=== PATIENT | female | born 1950 | race Caucasian/White ===

== ENCOUNTER 2017-04-09 11:45 | Emergency (ER) | payer OTHER, MEDICAID ==
[2017-04-09 11:51] VITALS: RESP 18
--- NOTE | 2017-04-09 13:06 | EDPHY ---
H & P Stated Complaint: Tripped,fell yesterday;skin tear,pain R wrist,abbrasion L knee Time Seen by Provider: 04/09/17 12:01 HPI/ROS: CHIEF COMPLAINT: Mechanical fall, right hand pain, left knee pain HISTORY OF PRESENT ILLNESS: The patient presents to the ED with complaints of pain, swelling and ecchymosis to the right hand and left knee following a mechanical fall yesterday. She tripped after running. She did not strike her head or lose consciousness. The patient denies any associated numbness or weakness. The patient has no complaints of headache, neck pain, chest pain or abdominal pain. REVIEW OF SYSTEMS: A comprehensive 10 point review of systems is otherwise negative aside from elements mentioned in the history of present illness. Source: Patient Exam Limitations: No limitations - Personal History Current Tetanus Diphtheria and Acellular Pertussis (TDAP): Yes Tetanus Vaccine Date: < 10 years - Medical/Surgical History Hx Asthma: No Hx Chronic Respiratory Disease: No Hx Diabetes: No Hx Cardiac Disease: No Hx Renal Disease: No Hx Cirrhosis: No Hx Alcoholism: No Hx HIV/AIDS: No Hx Splenectomy or Spleen Trauma: No Other PMH: Chronic bronchitis, Barrets esophagus, fibromyalgia, anxiety, depression left chest mediport, narc withdrawal - Social History Smoking Status: Never smoked - Physical Exam Exam: General Appearance: Alert, no distress Head: Atraumatic Eyes: Pupils equal, round, reactive ENT, Mouth: No hemotympanum, no oral trauma Neck: Nontender, trachea midline Respiratory: No chest wall tender, subcutaneous air, lungs clear bilaterally Cardiovascular: Regular rate and rhythm Abdomen: Abdomen is soft and nontender, pelvis stable Skin: Ecchymosis noted to the palm of the right hand and left knee, superficial abrasions present over right hand and knee Back: No midline T/L/S pain Extremities: Tenderness to palpation over the right thenar eminence, tenderness to palpation over the left knee Neurological: A&Ox3, normal motor function, normal sensory exam Constitutional: Initial Vital Signs Temperature (C) 36.8 C 04/09/17 11:46 Heart Rate 90 04/09/17 11:46 Respiratory Rate 18 04/09/17 11:46 Blood Pressure 118/78 04/09/17 11:46 O2 Sat (%) 94 04/09/17 11:46 O2 Delivery Mode Room Air Allergies/Adverse Reactions: cyclobenzaprine HCl [From Flexeril] Allergy (Mild, Verified 04/09/17 11:51) Rash sulfamethoxazole [From Septra] Allergy (Mild, Verified 04/09/17 11:51) Vomiting trimethoprim [From Septra] Allergy (Mild, Verified 04/09/17 11:51) Vomiting Home Medications: Medication Instructions Recorded Diclofenac Sodium 1% [Voltaren Gel 1 saba TP QID PRN 06/14/15 (*)] Sucralfate 1 gm PO QID 06/14/15 clonazePAM [klonoPIN (*)] 1 mg PO HS 06/14/15 Furosemide [Lasix 40 MG (*)] 40 mg PO BID@0900,1500 #0 tab 10/05/15 traMADol [Ultram 50 mg (*)] 50 mg PO Q4 04/09/17 Medical Decision Making - Diagnostics Imaging Results: Right hand x-ray: Images reviewed by myself, negative for acute fracture. Left knee x-ray: Images reviewed by myself, negative for acute fracture ED Course/Re-evaluation: The patient presents to the ED for evaluation of right hand pain and left knee pain following mechanical fall yesterday. She was taken for x-rays of these joints which demonstrated no obvious fracture by my interpretation. The patient will be placed in a Velcro wrist splint and advised to follow up with Orthopedic surgery for any persistent pain in the hand/wrist as this may be the sign of an occult fracture. The patient has been advised to ice as directed. She can take ibuprofen as needed for pain. Differential Diagnosis: Differential diagnosis considered includes fracture, sprain, dislocation Departure - Departure Disposition: Home, Routine, Self-Care Clinical Impression: Contusion of knee, left, Contusion of hand, right, Abrasions of multiple sites Condition: Good Instructions: Musculoskeletal Pain (ED) Additional Instructions: 1. Wear hand splint as needed for comfort. 2. Ice as directed 3. Ibuprofen as needed for pain 4. Please follow up with the orthopedic surgeon you have been referred to for any pain which persists past 3-5 days as this may be the sign of a fracture not noted on the x-ray today. Referrals: Charlene Umaña MD [Medical Doctor] - As per Instructions
[2017-04-09 13:40] VITALS: BP 119/79; PULSE 89; TEMP 98.6; O2SAT 93
== END 2017-04-09 13:42 | disposition home or self-care (01) ==
DX: S60.221A Contusion of right hand, initial encounter (principal); S80.02XA Contusion of left knee, initial encounter; S60.511A Abrasion of right hand, initial encounter; S80.212A Abrasion, left knee, initial encounter; W01.0XXA Fall on same level from slipping, tripping and stumbling without subsequent striking against object, initial encounter; Y99.8 Other external cause status; Y93.02 Activity, running
CPT/HCPCS: 73130; 73564; 99284; L3807

== ENCOUNTER 2017-05-23 11:57 | Inpatient (IN) | payer OTHER, MEDICAID ==
--- NOTE | 2017-05-23 12:23 | EDPHY ---
H & P Stated Complaint: abdominal pain Time Seen by Provider: 05/23/17 12:10 HPI/ROS: CHIEF COMPLAINT: Abdominal pain since this morning HISTORY OF PRESENT ILLNESS: 66-year-old female arrives via ambulance, history of diverticulitis, complaining of not feeling well for the past 3 days, development of nausea vomiting diarrhea yesterday and development of periumbilical abdominal pain this morning which feels similar to her prior episode of diverticulitis. No melena or hematochezia. No fever or chills. No radiation of pain. No back or flank pain. No urinary abnormality. No abdominal or other trauma. PRIMARY CARE PROVIDER: ASIM Huddleston REVIEW OF SYSTEMS: A ten point review of systems was performed and is negative with the exception of the items mentioned in the HPI PAST MEDICAL & SURGICAL HISTORY: Diverticulitis. Chronic pain. SOCIAL HISTORY:Nonsmoker PHYSICAL EXAM (Prior to examination, patient consented to physical exam, hands were washed and my usual and customary physical exam procedures followed) 1) GENERAL: Well-developed, well-nourished, alert and oriented. Appears uncomfortable. 2) HEAD: Normocephalic, atraumatic 3) HEENT: Pupils equal, round, reactive to light bilaterally. Sclera anicteric. [Nasopharynx, oropharynx, clear, no lesions. Moist mucous membranes 4) NECK: Full range of motion, no meningeal signs. 5) LUNGS: Clear auscultation bilaterally, no wheezes, no rhonchi, no retractions. 6) HEART: Regular rate and rhythm, no murmur, no heave, no gallop. 7) ABDOMEN: Guarding abdomen, tender to palpation periumbilical region. Negative peritoneal sign, 8) MUSCULOSKELETAL: Moving all extremities, no focal areas of tenderness, no obvious trauma. No peripheral edema or discoloration. 9) BACK: No CVA tenderness, no midline vertebral tenderness, no fluctuance, no step-off, no obvious trauma, no visual or palpable abnormality. 10) SKIN: No rash, no petechiae. 11) Psychiatric: Patient is oriented X 3, there is no agitation. DIFFERENTIAL DIAGNOSIS: My differential diagnosis includes, but is not limited to, acute appendicitis, acute cholecystitis, bowel obstruction, acute pancreatitis, diverticulitis, gastritis and urinary tract infection. The patient understands that this diagnosis is provisional and can never be 100% accurate. This is a partial list of diagnoses considered. These considerations are based on history, physical exam, past history and reassessment. - Personal History Current Tetanus/Diphtheria Vaccine: Yes Current Tetanus Diphtheria and Acellular Pertussis (TDAP): Yes Tetanus Vaccine Date: < 10 years - Medical/Surgical History Hx Asthma: No Hx Chronic Respiratory Disease: No Hx Diabetes: No Hx Cardiac Disease: No Hx Renal Disease: No Hx Cirrhosis: No Hx Alcoholism: No Hx HIV/AIDS: No Hx Splenectomy or Spleen Trauma: No Other PMH: Chronic bronchitis, Barrets esophagus, fibromyalgia, anxiety, depression left chest mediport, narc withdrawal - Social History Smoking Status: Never smoked Constitutional: Initial Vital Signs Temperature (C) 37.1 C 05/23/17 11:57 Heart Rate 98 05/23/17 11:57 Respiratory Rate 15 05/23/17 11:57 Blood Pressure 158/99 H 05/23/17 11:57 O2 Sat (%) 95 05/23/17 11:57 O2 Delivery Mode Nasal Cannula O2 (L/minute) 2 Allergies/Adverse Reactions: cyclobenzaprine HCl [From Flexeril] Allergy (Mild, Verified 04/09/17 11:51) Rash sulfamethoxazole [From Septra] Allergy (Mild, Verified 04/09/17 11:51) Vomiting trimethoprim [From Septra] Allergy (Mild, Verified 04/09/17 11:51) Vomiting Home Medications: Medication Instructions Recorded Diclofenac Sodium 1% [Voltaren Gel 1 saba TP QID PRN 06/14/15 (*)] Sucralfate 1 gm PO QID 06/14/15 clonazePAM [klonoPIN (*)] 1 mg PO HS 06/14/15 Furosemide [Lasix 40 MG (*)] 40 mg PO BID@0900,1500 #0 tab 10/05/15 traMADol [Ultram 50 mg (*)] 50 mg PO Q4 04/09/17 Cymbalta 05/23/17 Famotidine 05/23/17 Lipitor 05/23/17 Lorazepam 05/23/17 Phenergan 05/23/17 Potassium 05/23/17 Prilosec 05/23/17 Quetiapine Fumarate 05/23/17 SUMAtriptan 05/23/17 Triamterene-Hctz 75-50 mg Tab 05/23/17 Tylenol 05/23/17 Zofran 05/23/17 traZODone 05/23/17 Medical Decision Making - Diagnostics Imaging Results: Imaging Impressions Abdomen CT 05/23/17 12:21 Impression: Suspect early sigmoid diverticulitis, without abscess or perforation. Results called to Antione Brody PA-C, at the time of the study. ED Course/Re-evaluation: 2:40 p.m.: The patient has been re-evaluated with serial examinations most recently at this time. Patient's pain management has been challenging in the emergency department. She was given 200 mcg of fentanyl pre-hospital, given further doses of fentanyl and Dilaudid emergency department and this has had little effect on her pain. At this time she is crying, stating that she has does not feel she can be discharged home. Will consult with Dr. Yossi John. Case discussed with Dr. Brennan Rice in the emergency department secondary supervising physician 2:45 p.m.: Consultation Dr. Yossi John who agrees to admit patient. Patient has been given dose of IV Invanz she has no evidence of perforation or abdominal abscess on exam. - Data Points Laboratory Results: Laboratory Results 05/23/17 12:00 05/23/17 12:00 05/23/17 05/23/17 05/23/17 12:30 12:00 12:00 WBC 8.20 10^3/uL 10^3/uL (3.80-9.50) RBC 4.61 10^6/uL 10^6/uL (4.18-5.33) Hgb 14.2 g/dL g/dL (12.6-16.3) Hct 41.5 % % (38.0-47.0) MCV 90.0 fL fL (81.5-99.8) MCH 30.8 pg pg (27.9-34.1) MCHC 34.2 g/dL g/dL (32.4-36.7) RDW 13.4 % % (11.5-15.2) Plt Count 252 10^3/uL 10^3/uL (150-400) MPV 11.5 fL fL (8.7-11.7) Neut % (Auto) 77.3 % H % (39.3-74.2) Lymph % (Auto) 16.6 % % (15.0-45.0) Pepin % (Auto) 3.8 % L % (4.5-13.0) Eos % (Auto) 1.1 % % (0.6-7.6) Baso % (Auto) 0.6 % % (0.3-1.7) Nucleat RBC Rel Count 0.0 % % (0.0-0.2) Absolute Neuts (auto) 6.34 10^3/uL 10^3/uL (1.70-6.50) Absolute Lymphs (auto) 1.36 10^3/uL 10^3/uL (1.00-3.00) Absolute Monos (auto) 0.31 10^3/uL 10^3/uL (0.30-0.80) Absolute Eos (auto) 0.09 10^3/uL 10^3/uL (0.03-0.40) Absolute Basos (auto) 0.05 10^3/uL 10^3/uL (0.02-0.10) Absolute Nucleated RBC 0.00 10^3/uL 10^3/uL (0-0.01) Immature Gran % 0.6 % % (0.0-1.1) Immature Gran # 0.05 10^3/uL 10^3/uL (0.00-0.10) Sodium 148 mEq/L H mEq/L (135-145) Potassium 4.4 mEq/L mEq/L (3.5-5.2) Chloride 113 mEq/L H mEq/L (97-110) Carbon Dioxide 20 mEq/l L mEq/l (22-31) Anion Gap 15 mEq/L mEq/L (8-16) BUN 10 mg/dL mg/dL (7-23) Creatinine 1.0 mg/dL mg/dL (0.6-1.0) Estimated GFR 56 Glucose 140 mg/dL H mg/dL (70-100) Calcium 9.8 mg/dL mg/dL (8.5-10.4) Total Bilirubin 0.2 mg/dL mg/dL (0.1-1.4) Conjugated Bilirubin 0.2 mg/dL mg/dL (0.0-0.5) Unconjugated Bilirubin 0.0 mg/dL mg/dL (0.0-1.1) AST 21 IU/L IU/L (14-46) ALT 25 IU/L IU/L (9-52) Alkaline Phosphatase 75 IU/L IU/L (38-126) Total Protein 6.7 g/dL g/dL (6.3-8.2) Albumin 4.3 g/dL g/dL (3.5-5.0) Lipase 72 IU/L IU/L (23-300) Urine Color PALE YELLOW Urine Appearance CLEAR Urine pH 7.0 (5.0-7.5) Ur Specific [place] 1.005 (1.002-1.030) Urine Protein NEGATIVE (NEGATIVE) Urine Ketones NEGATIVE (NEGATIVE) Urine Blood NEGATIVE (NEGATIVE) Urine Nitrate NEGATIVE (NEGATIVE) Urine Bilirubin NEGATIVE (NEGATIVE) Urine Urobilinogen NEGATIVE EU EU (0.2-1.0) Ur Leukocyte Esterase NEGATIVE (NEGATIVE) Urine RBC 1-3 /hpf /hpf (0-3) Urine WBC 1-3 /hpf /hpf (0-3) Ur Epithelial Cells NONE SEEN /lpf /lpf (NONE-1+) Hyaline Casts 1-5 /lpf /lpf (0-1) Urine Mucus TRACE /lpf /lpf (NONE-1+) Urine Glucose NEGATIVE (NEGATIVE) Medications Given: Discontinued Medications Hydromorphone HCl (Dilaudid) 1 mg IVP EDNOW ONE Stop: 05/23/17 13:41 Last Admin: 05/23/17 13:43 Dose: 1 mg Ondansetron HCl (Zofran) 4 mg IVP EDNOW ONE Stop: 05/23/17 13:10 Last Admin: 05/23/17 13:11 Dose: 4 mg Departure - Departure Disposition: [facility] Clinical Impression: Diverticulitis Condition: Fair
[2017-05-23 12:26] LABS: PLATELET COUNT 252 10^3/uL (150-400)
[2017-05-23] MEDS ORDERED: IOPAMIDOL (ISOVUE-300) 100 ML BTL ONE (13:07)
[2017-05-23] MEDS ORDERED: ONDANSETRON 4 MG/2 ML VIAL IVP ONE (13:09)
[2017-05-23] MEDS ORDERED: HYDROmorphONE/DILAUDID 1 MG/ML INJ IVP ONE (13:40)
[2017-05-23] MEDS ORDERED: ERTAPENEM 1 GM VIAL IVP ONE (14:47)
[2017-05-23] MEDS ORDERED: KETOROLAC 30 MG/1 ML SDV IVP ONE (15:49)
[2017-05-23] MEDS: ONDANSETRON 4 MG/2 ML VIAL IVP PRN ×2 (17:18→21:26)
[2017-05-23] MEDS: D5W 1/2 NS W/ 20 KCl/L 1,000 ML IV SCH (17:24)
[2017-05-23] MEDS: KETOROLAC 15 MG/1 ML SDV IVP SCH (21:25)
[2017-05-23] MEDS: PANTOPRAZOLE SODIUM 40 MG TAB PO SCH (21:26)
[2017-05-23] MEDS ORDERED: NON-FORMULARY NEW DRUG (Ondansetron Hcl [Zofran] 8 MG) PO PRN (22:38)
[2017-05-23] MEDS ORDERED: PROMETHAZINE HCL 25 MG TAB PO PRN (22:38)
[2017-05-23] MEDS ORDERED: traMADol 50 MG TAB PO PRN (22:38)
[2017-05-23] MEDS ORDERED: DICLOFENAC SODIUM 1% 100 GM GEL TP PRN (22:38)
[2017-05-23] MEDS ORDERED: DULoxetine 30 MG CAP PO SCH (22:45)
[2017-05-23] MEDS ORDERED: DULoxetine 60 MG CAP PO SCH (22:45)
[2017-05-23] MEDS: FAMOTIDINE 20 MG TAB PO SCH (23:10)
[2017-05-23] MEDS: clonazePAM 0.5 MG TAB PO SCH (23:10)
[2017-05-23] MEDS: LORazepam 1 MG TAB PO PRN (23:11)
[2017-05-23] MEDS: traZODone 50 MG TAB PO SCH (23:11)
[2017-05-23] MEDS: QUEtiapine FUMARATE 100 MG TAB PO SCH (23:11)
[2017-05-23] MEDS ORDERED: ONDANSETRON DISINTEGRATING 4 MG TAB PO PRN (23:30)
[2017-05-24] MEDS: D5W 1/2 NS W/ 20 KCl/L 1,000 ML IV SCH (04:20)
[2017-05-24] MEDS: KETOROLAC 15 MG/1 ML SDV IVP SCH ×4 (04:21→21:49)
--- NOTE | 2017-05-24 04:30 | GHP ---
[f rep st] HISTORY AND PHYSICAL DATE OF ADMISSION: 05/23/2017 REASON FOR ADMISSION: Diverticulitis. HISTORY: The patient is a 66-year-old female, presents with 3 days of progressive abdominal symptoms , ultimately manifesting as moderate to severe abdominal pain. PAST MEDICAL HISTORY: Significant for esophagitis, Cortez's esophagus, depression, fibromyalgia, ch ronic pain, type 2 diabetes in 2009, erosive esophagitis, peptic ulcer disease, pulmonary embolism in 2006, recurrent nausea, vomiting, abdominal pain. PAST SURGICAL HISTORY: Significant for cholecystectomy, JUNE, eye surgery for being cross-eyed at age 10, breast biopsy left breast, CIELO left shoulder. FAMILY HISTORY: Father at age 33 of end-stage renal disease. Mother at 89 from [facility]. She has 3 siblings. She has 1 son. SOCIAL HISTORY: She does not smoke. She does not drink excessively. CURRENT MEDICATIONS: Tramadol 50 mg 1 or 2 every 6 hours as needed, trazodone 50 mg at bedtime, Cymb ivone 60 mg once daily, Cymbalta 30 mg once daily, atorvastatin 10 mg daily, clonazepam 0.5 mg at bedt barron, omeprazole 40 mg twice daily, quetiapine 100 mg at bedtime. REVIEW OF SYSTEMS: She was in good shape until the onset of her abdominal discomfort a few days ago. PHYSICAL EXAMINATION: VITAL SIGNS: Blood pressure 122/77, pulse 78 and regular, oxygen saturation 9 4% on 2 L pupils. GENERAL: She is alert, oriented, and appropriate, complaining of moderately signi ficant abdominal pain. HEENT: Pupils are equal, reactive to light. Throat is normal. LUNGS: Galina r to auscultation. HEART: Regular rate and rhythm without apparent murmur. GI: Bowel sounds are p resent. Her abdomen is tender to touch in the left lower abdomen. EXTREMITIES: She has no peripher al edema. She moves all extremities well. LABS AND DIAGNOSTIC STUDIES: Review of CT scan shows an area of diverticulitis of the colon. IMPRESSION: Diverticulitis. PLAN: Will admit. Place on IV antibiotics. Will observe closely. /[id number]/MODL
[2017-05-24] MEDS: ERTAPENEM 1 GM VIAL IVP SCH (09:34)
[2017-05-24] MEDS: ONDANSETRON 4 MG/2 ML VIAL IVP PRN (09:34)
[2017-05-24] MEDS: ATORVASTATIN CALCIUM 10 MG TAB PO SCH (09:35)
[2017-05-24] MEDS: FUROSEMIDE 40 MG TAB PO SCH (09:35)
[2017-05-24] MEDS: POTASSIUM CL 20 MEQ TAB PO SCH ×2 (09:35→21:47)
[2017-05-24] MEDS: DULoxetine 30 MG CAP PO SCH (09:35)
[2017-05-24] MEDS: LORazepam 1 MG TAB PO PRN ×3 (09:35→21:47)
[2017-05-24] MEDS: PANTOPRAZOLE SODIUM 40 MG TAB PO SCH ×2 (09:36→21:47)
[2017-05-24] MEDS: FAMOTIDINE 20 MG TAB PO SCH ×2 (09:36→21:47)
[2017-05-24] MEDS ORDERED: morphINE IR 30 MG TAB PO PRN (11:11)
--- NOTE | 2017-05-24 11:18 | SOAPPROG ---
SOAP Progress Note Assessment/Plan: Assessment: Plan: 05/24/17 11:15 abdominal pain with sigmoid diverticulitis. Continue IV Invanz and flagyl. She has a complicated history of prior high dose chronic pain therapy. Pain control will likely be more challenging. Will add po morphine along with IV short acting. Anticipate the potential need to escalate the dose. N/V--tank terminal gauger historic challenge. Increase phenergan dosing. Historically ondansetron by itself has not worked adequately. insomnia--stable QUIN--CPAP at home depression/anxiety--continue current meds Subjective: Anh has had escalating GI symptoms with a sudden increase in central abdominal pain after n/v yesterday. No f/c. + URI sx with known illness contact at [facility]. She has been able to eat a smoothie today. Central abdominal pain persists. + BM today Objective: Vital Signs Temp Pulse Resp BP Pulse Ox 36.8 C 74 16 120/68 98 05/24/17 07:25 05/24/17 07:25 05/24/17 07:25 05/24/17 07:25 05/24/17 07:25 05/23/17 05/24/17 05/25/17 05:59 05:59 05:59 Intake Total 1100 Balance 1100 Gen: uncomfortable, pleasant Lungs: CTAB Heart: RRR Abd + bs soft, nd + TTP greatest in the mckinley-umbilical region LE's stable mild edema CT prox sigmoid diverticulitis ICD10 Worksheet Patient Problems: Problems Problem Status Onset Diverticulitis Acute Abdominal pain Acute Bronchitis Acute Chronic abdominal pain Acute Diarrhea Acute Elevated serum creatinine Acute History of nausea and vomiting Acute Hypokalemia Acute Nausea & vomiting Acute Pain Acute Pneumonia Acute Vomiting Acute
[2017-05-24] MEDS ORDERED: ENOXAPARIN 80 MG/0.8 ML SYR SC SCH (11:30)
[2017-05-24] MEDS: PROMETHAZINE HCL 25 MG TAB PO PRN (12:02)
--- NOTE | 2017-05-24 12:34 | ASMTCMCOM ---
CM Note CM Note Notes: Chart reviewed. Patient admitted with abdominal pain. Normally lives at [facility] with no services. No current needs identified, CM available should needs arise. Date Signed: 05/24/2017 12:33 PM Electronically Signed By:Jo Stewart RN
[2017-05-24] MEDS: ENOXAPARIN 40 MG/0.4 ML SYR SC SCH (13:40)
[2017-05-24] MEDS: ACETAMINOPHEN 500 MG TAB PO PRN (16:43)
[2017-05-24] MEDS: PROMETHAZINE HCL 25 MG/ML INJ IVP PRN (20:00)
[2017-05-24] MEDS ORDERED: HYDROmorphONE/DILAUDID 1 MG/ML INJ IVP ONE (20:15)
[2017-05-24] MEDS ORDERED: HYDROmorphONE/DILAUDID 1 MG/ML INJ IVP PRN (20:28)
[2017-05-24] MEDS ORDERED: clonazePAM 0.5 MG TAB PO SCH (21:00)
[2017-05-24] MEDS: QUEtiapine FUMARATE 100 MG TAB PO SCH (21:47)
[2017-05-24] MEDS: clonazePAM 0.5 MG TAB PO SCH (21:47)
[2017-05-24] MEDS: traZODone 50 MG TAB PO SCH (21:47)
[2017-05-25] MEDS: D5W 1/2 NS W/ 20 KCl/L 1,000 ML IV SCH ×2 (04:45→17:00)
[2017-05-25] MEDS: KETOROLAC 15 MG/1 ML SDV IVP SCH ×4 (04:45→21:42)
[2017-05-25 05:04] LABS: PLATELET COUNT 183 10^3/uL (150-400)
[2017-05-25] MEDS: PROMETHAZINE HCL 25 MG/ML INJ IVP PRN (08:19)
[2017-05-25] MEDS: ERTAPENEM 1 GM VIAL IVP SCH (08:24)
[2017-05-25] MEDS: ENOXAPARIN 40 MG/0.4 ML SYR SC SCH (08:24)
[2017-05-25] MEDS: FAMOTIDINE 20 MG TAB PO SCH ×2 (08:25→21:42)
[2017-05-25] MEDS: DULoxetine 30 MG CAP PO SCH (08:25)
[2017-05-25] MEDS: FUROSEMIDE 40 MG TAB PO SCH (08:25)
[2017-05-25] MEDS: PANTOPRAZOLE SODIUM 40 MG TAB PO SCH ×2 (08:25→21:42)
[2017-05-25] MEDS: ATORVASTATIN CALCIUM 10 MG TAB PO SCH (08:25)
[2017-05-25] MEDS: POTASSIUM CL 20 MEQ TAB PO SCH ×2 (08:25→21:42)
[2017-05-25] MEDS ORDERED: ALBUTEROL 3 ML DEYVIAL IH PRN (09:02)
--- NOTE | 2017-05-25 09:06 | SOAPPROG ---
SOAP Progress Note Assessment/Plan: Assessment: Plan: 05/24/17 11:15 abdominal pain with sigmoid diverticulitis. Continue IV Invanz and flagyl. She has a complicated history of prior high dose chronic pain therapy. Pain control will likely be more challenging. Will add po morphine along with IV short acting. Anticipate the potential need to escalate the dose. N/V--alf historic challenge. Increase phenergan dosing. Historically ondansetron by itself has not worked adequately. insomnia--stable QUIN--CPAP at home depression/anxiety--continue current meds 05/25/17 09:05 acute URI sx--eval for influenza today. Start symptomatic care, add tamiflu if + diverticulitis--a bit better today historic fe def--now nl Subjective: c/o nasal congestion, cough and wheeze. GI sx seem to be improved. Pain spike last evening was improved by dilaudid successfully. + BM. po still reduced Objective: Vital Signs Temp Pulse Resp BP Pulse Ox 36.9 C 76 16 106/72 95 05/25/17 07:49 05/25/17 07:49 05/25/17 07:49 05/25/17 07:49 05/25/17 07:49 Laboratory Results 05/25/17 04:45 05/25/17 04:45 05/24/17 05/25/17 05/26/17 05:59 05:59 05:59 Intake Total 1100 4162 Balance 1100 4162 Gen: brighter HEENT: nasal congestion Lungs: mild exp wheeze, dry cough Heart: RRR Abd +bs soft, less TTP labs: low hdl, tsh fine, iron adequate ICD10 Worksheet Patient Problems: Problems Problem Status Onset Diverticulitis Acute Abdominal pain Acute Bronchitis Acute Chronic abdominal pain Acute Diarrhea Acute Elevated serum creatinine Acute History of nausea and vomiting Acute Hypokalemia Acute Nausea & vomiting Acute Pain Acute Pneumonia Acute Vomiting Acute
[2017-05-25] MEDS: LORazepam 1 MG TAB PO PRN ×2 (09:51→16:00)
[2017-05-25] MEDS: guaiFENesin 600 MG TAB.ER PO SCH ×2 (09:51→21:42)
[2017-05-25] MEDS: OXYMETAZOLINE 30 ML NASAL SPRAY EACHNARE SCH (09:52)
[2017-05-25] MEDS: HYDROmorphONE/DILAUDID 1 MG/ML INJ IVP PRN ×5 (09:52→22:43)
[2017-05-25] MEDS: ONDANSETRON 4 MG/2 ML VIAL IVP PRN (10:50)
--- NOTE | 2017-05-25 12:21 | ASMTCMCOM ---
CM Note CM Note Notes: Chart reviewed. Spoke to patient's RN who reports patient will stay today as pain is uncontrolled. Plan to return to [facility] when medicallly stable. CM to follow. Date Signed: 05/25/2017 12:20 PM Electronically Signed By:Jo Stewart RN
[2017-05-25] MEDS: ALPRAZolam 1 MG TAB PO PRN (15:39)
[2017-05-25] MEDS: ACETAMINOPHEN 500 MG TAB PO PRN (17:58)
[2017-05-25] MEDS: PROMETHAZINE HCL 25 MG TAB PO PRN (19:34)
[2017-05-25] MEDS: QUEtiapine FUMARATE 100 MG TAB PO SCH (21:42)
[2017-05-25] MEDS: traZODone 50 MG TAB PO SCH (21:42)
[2017-05-25] MEDS: clonazePAM 0.5 MG TAB PO SCH (21:42)
[2017-05-26] MEDS: D5W 1/2 NS W/ 20 KCl/L 1,000 ML IV SCH ×2 (04:04→16:20)
[2017-05-26] MEDS: PROMETHAZINE HCL 25 MG TAB PO PRN ×2 (04:05→21:36)
[2017-05-26] MEDS: HYDROmorphONE/DILAUDID 1 MG/ML INJ IVP PRN ×6 (04:05→21:30)
[2017-05-26] MEDS: KETOROLAC 15 MG/1 ML SDV IVP SCH ×4 (04:05→21:30)
[2017-05-26] MEDS: OXYMETAZOLINE 30 ML NASAL SPRAY EACHNARE SCH ×3 (04:39→20:29)
[2017-05-26] MEDS: LORazepam 1 MG TAB PO PRN (07:56)
[2017-05-26] MEDS: DULoxetine 30 MG CAP PO SCH (08:42)
[2017-05-26] MEDS: PANTOPRAZOLE SODIUM 40 MG TAB PO SCH ×2 (08:43→20:24)
[2017-05-26] MEDS: FAMOTIDINE 20 MG TAB PO SCH ×2 (08:43→20:24)
[2017-05-26] MEDS: guaiFENesin 600 MG TAB.ER PO SCH ×2 (08:43→20:23)
[2017-05-26] MEDS: ATORVASTATIN CALCIUM 10 MG TAB PO SCH (08:43)
[2017-05-26] MEDS: POTASSIUM CL 20 MEQ TAB PO SCH ×2 (08:43→20:24)
[2017-05-26] MEDS: FUROSEMIDE 40 MG TAB PO SCH (08:43)
[2017-05-26] MEDS: ENOXAPARIN 40 MG/0.4 ML SYR SC SCH (08:45)
[2017-05-26] MEDS: ONDANSETRON 4 MG/2 ML VIAL IVP PRN (09:02)
[2017-05-26] MEDS: ACETAMINOPHEN 500 MG TAB PO PRN ×2 (09:04→17:17)
--- NOTE | 2017-05-26 10:27 | SOAPPROG ---
SOAP Progress Note Assessment/Plan: Assessment: 66 yo female w/ diverticulitis, URI, ongoing pain and nausea -diverticulitis - cont on IV abx, slow progress, on invanz and flagyl, phenergan /zofran for nausea, is having some loose stools. -URI - influenza neg, still w/ coughing w/ deep inspiration, somewhat wheezy on exam - has nebs but prn, will change to q4 while awake as she reports she is not getting these. -QUIN - cpap -depression/anxiety - cont w/ current meds Plan: 05/26/17 10:24 Subjective: c/o ongoing abdominal discomfort, tight chest Objective: Vital Signs Temp Pulse Resp BP Pulse Ox 36.7 C 83 20 127/73 H 94 05/26/17 08:00 05/26/17 08:00 05/26/17 08:00 05/26/17 08:00 05/26/17 08:00 Laboratory Results 05/25/17 04:45 05/25/17 04:45 05/25/17 05/26/17 05/27/17 05:59 05:59 05:59 Intake Total 4162 3964 Balance 4162 3964 Gen: laying on side in dark room, listening to story on phone, depressed affect Heent: eomi Neck soft/supple Chest: some scattered expiratory wheezes CV: rrr ABD: soft ttp in mid epigastric area to L side Ext: c/d/i ICD10 Worksheet Patient Problems: Problems Problem Status Onset Bronchitis Acute Pneumonia Acute History of nausea and vomiting Acute Diarrhea Acute Abdominal pain Acute Vomiting Acute Hypokalemia Acute Nausea & vomiting Acute Chronic abdominal pain Acute Pain Acute Elevated serum creatinine Acute Diverticulitis Acute
[2017-05-26] MEDS: ALBUTEROL 3 ML DEYVIAL IH SCH ×3 (12:46→20:47)
[2017-05-26] MEDS: PROMETHAZINE HCL 25 MG/ML INJ IVP PRN (14:59)
[2017-05-26] MEDS: QUEtiapine FUMARATE 100 MG TAB PO SCH (20:23)
[2017-05-26] MEDS: traZODone 50 MG TAB PO SCH (20:23)
[2017-05-26] MEDS: clonazePAM 0.5 MG TAB PO SCH (20:24)
[2017-05-27] MEDS: ALBUTEROL 3 ML DEYVIAL IH SCH ×6 (01:49→22:15)
[2017-05-27] MEDS: HYDROmorphONE/DILAUDID 1 MG/ML INJ IVP PRN ×7 (02:08→20:56)
[2017-05-27] MEDS: PROMETHAZINE HCL 25 MG TAB PO PRN ×2 (03:30→10:37)
[2017-05-27] MEDS: D5W 1/2 NS W/ 20 KCl/L 1,000 ML IV SCH ×2 (03:31→14:27)
[2017-05-27] MEDS: LORazepam 1 MG TAB PO PRN (04:48)
[2017-05-27] MEDS: KETOROLAC 15 MG/1 ML SDV IVP SCH ×4 (04:48→20:56)
[2017-05-27] MEDS: ENOXAPARIN 40 MG/0.4 ML SYR SC SCH (08:20)
[2017-05-27] MEDS: ATORVASTATIN CALCIUM 10 MG TAB PO SCH (08:21)
[2017-05-27] MEDS: guaiFENesin 600 MG TAB.ER PO SCH ×2 (08:22→20:57)
[2017-05-27] MEDS: DULoxetine 30 MG CAP PO SCH (08:22)
[2017-05-27] MEDS: FUROSEMIDE 40 MG TAB PO SCH (08:22)
[2017-05-27] MEDS: FAMOTIDINE 20 MG TAB PO SCH ×2 (08:22→20:56)
--- NOTE | 2017-05-27 09:00 | SOAPPROG ---
SOAP Progress Note Assessment/Plan: Assessment: Plan: 05/24/17 11:15 abdominal pain with sigmoid diverticulitis. Continue IV Invanz and flagyl. She has a complicated history of prior high dose chronic pain therapy. Pain control will likely be more challenging. Will add po morphine along with IV short acting. Anticipate the potential need to escalate the dose. N/V--[facility] historic challenge. Increase phenergan dosing. Historically ondansetron by itself has not worked adequately. insomnia--stable QUIN--CPAP at home depression/anxiety--continue current meds 05/25/17 09:05 acute URI sx--eval for influenza today. Start symptomatic care, add tamiflu if + diverticulitis--a bit better today historic fe def--now nl 05/27/17 08:58 pain--add long acting morphine to better bridge pain gaps (h/o rat exterminator chronic pain therapy) diverticulitis--slow improvement in pain sx, check labs in am URI--moderate lung coarseness with this, add prednisone dep/anxiety--aggravated by illness QUIN--HS oxygen while here d/c home to [facility] when improved adequately Subjective: C/o cough, abdominal pain, significant pain between doses of dilaudid. Eating is minimal. Bowels moving Objective: Vital Signs Temp Pulse Resp BP Pulse Ox 37.8 C 87 14 114/67 95 05/27/17 08:00 05/27/17 08:00 05/27/17 08:00 05/27/17 08:00 05/27/17 08:00 Laboratory Results 05/25/17 04:45 05/25/17 04:45 05/26/17 05/27/17 05/28/17 05:59 05:59 05:59 Intake Total 8834 Balance 8834 Gen: NAD, pleasant HEENT: slightly dry mm's Lungs: coarse BS, dry cough Heart: RRR Abd + bs soft, mild TTP central abdomen LE's trace edema low grade temp noted ICD10 Worksheet Patient Problems: Problems Problem Status Onset Diverticulitis Acute Abdominal pain Acute Bronchitis Acute Chronic abdominal pain Acute Diarrhea Acute Elevated serum creatinine Acute History of nausea and vomiting Acute Hypokalemia Acute Nausea & vomiting Acute Pain Acute Pneumonia Acute Vomiting Acute
[2017-05-27] MEDS: PANTOPRAZOLE SODIUM 40 MG TAB PO SCH ×2 (10:37→20:57)
[2017-05-27] MEDS: POTASSIUM CL 20 MEQ TAB PO SCH ×2 (10:37→20:57)
[2017-05-27] MEDS: predniSONE 20 MG TAB PO SCH (10:37)
[2017-05-27] MEDS: morphINE SR 30 MG TAB PO SCH ×2 (10:38→20:56)
[2017-05-27] MEDS: OXYMETAZOLINE 30 ML NASAL SPRAY EACHNARE SCH ×2 (10:38→20:57)
--- NOTE | 2017-05-27 15:22 | ASMTCMCOM ---
CM Note CM Note Notes: Plan remains the same, pt is independent with ADLs, will dc home to [place] when medically stable. CM available for any changes. DC Plan: [facility] [place] Date Signed: 05/27/2017 03:21 PM Electronically Signed By:Heather Hartmann RN
[2017-05-27] MEDS: traZODone 50 MG TAB PO SCH (20:56)
[2017-05-27] MEDS: clonazePAM 0.5 MG TAB PO SCH (20:57)
[2017-05-27] MEDS: QUEtiapine FUMARATE 100 MG TAB PO SCH (20:57)
[2017-05-28] MEDS: KETOROLAC 15 MG/1 ML SDV IVP SCH ×3 (03:10→17:03)
[2017-05-28] MEDS: D5W 1/2 NS W/ 20 KCl/L 1,000 ML IV SCH (03:10)
[2017-05-28] MEDS: HYDROmorphONE/DILAUDID 1 MG/ML INJ IVP PRN ×7 (03:10→23:43)
[2017-05-28] MEDS: OXYMETAZOLINE 30 ML NASAL SPRAY EACHNARE SCH ×4 (03:15→23:44)
[2017-05-28 03:47] LABS: PLATELET COUNT 150 10^3/uL (150-400)
[2017-05-28] MEDS: ALBUTEROL 3 ML DEYVIAL IH SCH ×6 (04:11→21:02)
[2017-05-28] MEDS: DULoxetine 30 MG CAP PO SCH (08:08)
[2017-05-28] MEDS: ATORVASTATIN CALCIUM 10 MG TAB PO SCH (08:08)
[2017-05-28] MEDS: morphINE SR 30 MG TAB PO SCH ×2 (08:08→20:15)
[2017-05-28] MEDS: PANTOPRAZOLE SODIUM 40 MG TAB PO SCH ×2 (08:08→20:15)
[2017-05-28] MEDS: ENOXAPARIN 40 MG/0.4 ML SYR SC SCH (08:08)
[2017-05-28] MEDS: guaiFENesin 600 MG TAB.ER PO SCH ×2 (08:08→20:15)
[2017-05-28] MEDS: FUROSEMIDE 40 MG TAB PO SCH (08:08)
[2017-05-28] MEDS: FAMOTIDINE 20 MG TAB PO SCH ×2 (08:08→20:15)
[2017-05-28] MEDS: POTASSIUM CL 20 MEQ TAB PO SCH ×2 (08:09→20:16)
[2017-05-28] MEDS: predniSONE 20 MG TAB PO SCH (08:09)
--- NOTE | 2017-05-28 09:05 | SOAPPROG ---
SOAP Progress Note Assessment/Plan: Assessment: Plan: 05/24/17 11:15 abdominal pain with sigmoid diverticulitis. Continue IV Invanz and flagyl. She has a complicated history of prior high dose chronic pain therapy. Pain control will likely be more challenging. Will add po morphine along with IV short acting. Anticipate the potential need to escalate the dose. 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 Increase phenergan dosing. Historically ondansetron by itself has not worked adequately. insomnia--stable QUIN--CPAP at home depression/anxiety--continue current meds 05/25/17 09:05 acute URI sx--eval for influenza today. 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 Pain less of an issue. Cough is very prominent and moderately painful. SOB stable. GI sx improving, eating better. Objective: Vital Signs Temp Pulse Resp BP Pulse Ox 36.8 C 68 20 112/70 96 05/28/17 07:31 05/28/17 07:31 05/28/17 07:31 05/28/17 07:31 05/28/17 07:56 Laboratory Results 05/28/17 03:30 05/28/17 03:30 05/27/17 05/28/17 05/29/17 05:59 05:59 05:59 Intake Total 8834 4025 Balance 8834 4028 Gen: Brighter Lungs: moderate persistent exp wheeze right middle lung, no crackles, mild productivity Heart: RRR Abd + bs soft LE's stable edema ICD10 Worksheet Patient Problems: Problems Problem Status Onset Diverticulitis Acute Abdominal pain Acute Bronchitis Acute Chronic abdominal pain Acute Diarrhea Acute Elevated serum creatinine Acute History of nausea and vomiting Acute Hypokalemia Acute Nausea & vomiting Acute Pain Acute Pneumonia Acute Vomiting Acute
[2017-05-28] MEDS: PROMETHAZINE HCL 25 MG TAB PO PRN (19:16)
[2017-05-28] MEDS: QUEtiapine FUMARATE 100 MG TAB PO SCH (20:15)
[2017-05-28] MEDS: clonazePAM 0.5 MG TAB PO SCH (20:15)
[2017-05-28] MEDS: traZODone 50 MG TAB PO SCH (20:15)
[2017-05-28] MEDS: LORazepam 1 MG TAB PO PRN (23:43)
[2017-05-29] MEDS: ALBUTEROL 3 ML DEYVIAL IH SCH ×6 (01:39→21:37)
[2017-05-29] MEDS: HYDROmorphONE/DILAUDID 1 MG/ML INJ IVP PRN ×5 (05:07→19:12)
[2017-05-29] MEDS: cefTRIAXone 1 GM in STERILE WATER INJ 10 ML IV SCH (09:26)
[2017-05-29] MEDS: ATORVASTATIN CALCIUM 10 MG TAB PO SCH (09:30)
[2017-05-29] MEDS: FAMOTIDINE 20 MG TAB PO SCH ×2 (09:30→20:07)
[2017-05-29] MEDS: predniSONE 20 MG TAB PO SCH (09:30)
[2017-05-29] MEDS: guaiFENesin 600 MG TAB.ER PO SCH ×2 (09:30→20:07)
[2017-05-29] MEDS: DULoxetine 30 MG CAP PO SCH (09:30)
[2017-05-29] MEDS: FUROSEMIDE 40 MG TAB PO SCH (09:31)
[2017-05-29] MEDS: PANTOPRAZOLE SODIUM 40 MG TAB PO SCH ×2 (09:31→20:07)
[2017-05-29] MEDS: morphINE SR 30 MG TAB PO SCH ×2 (09:31→20:07)
[2017-05-29] MEDS: POTASSIUM CL 20 MEQ TAB PO SCH ×2 (09:31→20:07)
[2017-05-29] MEDS: ENOXAPARIN 40 MG/0.4 ML SYR SC SCH (09:34)
[2017-05-29] MEDS: OXYMETAZOLINE 30 ML NASAL SPRAY EACHNARE SCH ×3 (09:50→20:07)
--- NOTE | 2017-05-29 11:25 | ASMTCMCOM ---
CM Note CM Note Notes: DC plan unchanged. No needs identified. CM available should needs change. Date Signed: 05/29/2017 11:24 AM Electronically Signed By:Jo Stewart RN
[2017-05-29] MEDS: LORazepam 1 MG TAB PO PRN (11:41)
[2017-05-29] MEDS: PROMETHAZINE HCL 25 MG TAB PO PRN (11:58)
[2017-05-29] MEDS: clonazePAM 0.5 MG TAB PO SCH (20:07)
[2017-05-29] MEDS: traZODone 50 MG TAB PO SCH (20:07)
[2017-05-29] MEDS: QUEtiapine FUMARATE 100 MG TAB PO SCH (20:10)
[2017-05-30] MEDS: HYDROmorphONE/DILAUDID 1 MG/ML INJ IVP PRN ×5 (00:15→18:32)
[2017-05-30] MEDS: ALBUTEROL 3 ML DEYVIAL IH SCH ×6 (04:38→21:44)
[2017-05-30] MEDS: PROMETHAZINE HCL 25 MG/ML INJ IVP PRN (05:37)
[2017-05-30] MEDS: OXYMETAZOLINE 30 ML NASAL SPRAY EACHNARE SCH ×2 (08:17→22:25)
[2017-05-30] MEDS: ENOXAPARIN 40 MG/0.4 ML SYR SC SCH (08:18)
[2017-05-30] MEDS: cefTRIAXone 1 GM in STERILE WATER INJ 10 ML IV SCH (08:18)
[2017-05-30] MEDS: ATORVASTATIN CALCIUM 10 MG TAB PO SCH (08:22)
[2017-05-30] MEDS: PANTOPRAZOLE SODIUM 40 MG TAB PO SCH ×2 (08:22→20:30)
[2017-05-30] MEDS: FAMOTIDINE 20 MG TAB PO SCH ×2 (08:22→20:30)
[2017-05-30] MEDS: DULoxetine 30 MG CAP PO SCH (08:22)
[2017-05-30] MEDS: morphINE SR 30 MG TAB PO SCH ×2 (08:22→20:30)
[2017-05-30] MEDS: POTASSIUM CL 20 MEQ TAB PO SCH ×2 (08:23→20:30)
[2017-05-30] MEDS: guaiFENesin 600 MG TAB.ER PO SCH ×2 (08:23→20:30)
[2017-05-30] MEDS: FUROSEMIDE 40 MG TAB PO SCH (08:23)
[2017-05-30] MEDS: predniSONE 20 MG TAB PO SCH (08:32)
[2017-05-30] MEDS: ALPRAZolam 1 MG TAB PO PRN (11:05)
--- NOTE | 2017-05-30 12:41 | SOAPPROG ---
SOAP Progress Note Assessment/Plan: Assessment: 66 yo female w/ diverticulitis, URI, ongoing pain and nausea -diverticulitis - cont on IV abx, slow progress, on invanz and flagyl, phenergan /zofran for nausea, is having some loose stools. -URI - influenza neg, still w/ coughing w/ deep inspiration, somewhat wheezy on exam - has nebs but prn, will change to q4 while awake as she reports she is not getting these. -QUIN - cpap -depression/anxiety - cont w/ current meds Plan: 05/26/17 10:24 05/30/17 12:38 LATE ENTRY NOTE FOR 05/29/17 66 yo female w/ diverticulitis, URI -diverticulitis - much better, nl bm's, eating full diet -URI - still w/ sob/wheezing - cont on pred 20, nebs, hopefully improves over next 24 hrs -QUIN - cpap -depression/anxiety - brighter affect now as feeling better, cont current meds -dispo - likely d/c Sat or Sun to [facility] - has good care there in place. Subjective: Doing better, just c/o ongoing tight chest, milder abd'l pain Objective: Vital Signs Temp Pulse Resp BP Pulse Ox 37.1 C 82 16 132/72 H 92 05/30/17 10:55 05/30/17 10:55 05/30/17 10:55 05/30/17 10:55 05/30/17 10:55 Laboratory Results 05/28/17 03:30 05/28/17 03:30 05/29/17 05/30/17 05/31/17 05:59 05:59 05:59 Intake Total 1400 600 Balance 1400 600 Gen: alert, sitting up but coughing Heent; eomi Chest: wheezes scattered throughout CV: rrr ABD mildly ttp diffusely - Pending Discharge Pending Discharge Within 48 Hours: Yes Pending Discharge Date: 06/01/17 Pending Discharge Time: 11:00 ICD10 Worksheet Patient Problems: Problems Problem Status Onset Bronchitis Acute Pneumonia Acute History of nausea and vomiting Acute Diarrhea Acute Abdominal pain Acute Vomiting Acute Hypokalemia Acute Nausea & vomiting Acute Chronic abdominal pain Acute Pain Acute Elevated serum creatinine Acute Diverticulitis Acute
--- NOTE | 2017-05-30 13:18 | SOAPPROG ---
SOAP Progress Note Assessment/Plan: Assessment: Plan: 05/30/17 13:21 Diverticulitis: improved. Will change to PO antibx and see how she does prior to discharging her. Will switch her to Augmentin as she would prefer fewer pills. URI: still with significant episodes of cough despite prednisone, nebs. No wheezing on exam today. QUIN: on CPAP Depression, anxiety: cont current meds 05/30/17 13:25 Subjective: Slept well last night, but woke up with headache, head congestion, cough and didn't feel well. Nebs help. Mild fluid overload noted on CXR, and is on lasix. Anxious about going home on the weekend as she isn't sure she can get the help she thinks she might need from staff at [facility]. Abdominal discomfort much better. Has had 3 BMs this morning. Remains on IV antibx for diverticulitis --ceftriaxone and metronidazole. Objective: Vital Signs Temp Pulse Resp BP Pulse Ox 37.1 C 82 16 132/72 H 92 05/30/17 10:55 05/30/17 10:55 05/30/17 10:55 05/30/17 10:55 05/30/17 10:55 Laboratory Results 05/28/17 03:30 05/28/17 03:30 05/29/17 05/30/17 05/31/17 05:59 05:59 05:59 Intake Total 1400 600 Balance 1400 600 General: sitting up in bed, pleasant Neck: no masses, adenopathy Lungs: clear. Dry cough at times Cardiovascular: RRR without masses, adenopathy Abdomen: +bowel sounds, soft. Mild tenderness RLQ Extremities: no edema ICD10 Worksheet Patient Problems: Problems Problem Status Onset Diverticulitis Acute Abdominal pain Acute Bronchitis Acute Chronic abdominal pain Acute Diarrhea Acute Elevated serum creatinine Acute History of nausea and vomiting Acute Hypokalemia Acute Nausea & vomiting Acute Pain Acute Pneumonia Acute Vomiting Acute
[2017-05-30] MEDS: AMOXICILLIN/CLAVULANATE POT 875/125 MG TAB PO SCH ×2 (15:50→20:31)
[2017-05-30] MEDS: clonazePAM 0.5 MG TAB PO SCH (20:30)
[2017-05-30] MEDS: QUEtiapine FUMARATE 100 MG TAB PO SCH (20:30)
[2017-05-30] MEDS: traZODone 50 MG TAB PO SCH (20:30)
[2017-05-31] MEDS: HYDROmorphONE/DILAUDID 1 MG/ML INJ IVP PRN ×5 (00:18→19:59)
[2017-05-31] MEDS: LORazepam 1 MG TAB PO PRN ×2 (00:23→22:09)
[2017-05-31] MEDS: PROMETHAZINE HCL 25 MG TAB PO PRN ×2 (00:32→14:47)
[2017-05-31] MEDS: ALBUTEROL 3 ML DEYVIAL IH SCH ×4 (02:00→10:37)
[2017-05-31] MEDS: ENOXAPARIN 40 MG/0.4 ML SYR SC SCH (09:46)
[2017-05-31] MEDS: guaiFENesin 600 MG TAB.ER PO SCH ×2 (09:46→20:04)
[2017-05-31] MEDS: POTASSIUM CL 20 MEQ TAB PO SCH ×2 (09:46→20:03)
[2017-05-31] MEDS: AMOXICILLIN/CLAVULANATE POT 875/125 MG TAB PO SCH ×3 (09:47→22:09)
[2017-05-31] MEDS: morphINE SR 30 MG TAB PO SCH ×2 (09:47→20:04)
[2017-05-31] MEDS: ATORVASTATIN CALCIUM 10 MG TAB PO SCH (09:47)
[2017-05-31] MEDS: PANTOPRAZOLE SODIUM 40 MG TAB PO SCH ×2 (09:47→20:04)
[2017-05-31] MEDS: FAMOTIDINE 20 MG TAB PO SCH ×2 (09:47→20:04)
[2017-05-31] MEDS: predniSONE 20 MG TAB PO SCH (09:48)
[2017-05-31] MEDS: FUROSEMIDE 40 MG TAB PO SCH (09:48)
[2017-05-31] MEDS: DULoxetine 30 MG CAP PO SCH (09:48)
[2017-05-31] MEDS: OXYMETAZOLINE 30 ML NASAL SPRAY EACHNARE SCH ×2 (09:49→22:10)
[2017-05-31] MEDS ORDERED: LEVALBUTEROL 1.25 MG/3 ML DEYVIAL ONE (10:26)
[2017-05-31] MEDS: LEVALBUTEROL 1.25 MG/3 ML DEYVIAL IH SCH ×3 (10:38→21:46)
--- NOTE | 2017-05-31 11:45 | SOAPPROG ---
SOAP Progress Note Assessment/Plan: Assessment: Plan: 05/30/17 13:21 Diverticulitis: improved. Will change to PO antibx and see how she does prior to discharging her. Will switch her to Augmentin as she would prefer fewer pills. URI: still with significant episodes of cough despite prednisone, nebs. No wheezing on exam today. QUIN: on CPAP Depression, anxiety: cont current meds 05/30/17 13:25 05/31/17 11:45 Diverticulitis: episode of increased pain last night. Seems unlikely related to change from IV to oral antibiotics, as Augmentin should provide excellent coverage, but will go ahead and recheck CT to make sure she has not developed anything unexpected. Will also recheck CBC. URI: continues to improve slowly. Will change to Xopenex to hopefully mitigate CV effects. QUIN: on CPAP Depression, anxiety: will continue current meds. Quite anxious about returning home due to lack of support regarding discharge medication prior to Thursday. 05/31/17 11:46 Subjective: Had an episode of severe abdominal pain during the night, woke up crying. Is feeling better now. States had 6 loose stools this morning. No bleeding. Overall breathing and cough is improved since admission. Feeling somewhat hyper with albuterol nebs but finds them helpful. States that the person who handles her medications at [facility] will not be available to help until Thursday. This makes obtaining any new meds very difficult as patient doesn't drive. Objective: Vital Signs Temp Pulse Resp BP Pulse Ox 36.9 C 65 16 130/75 H 93 05/31/17 07:58 05/31/17 07:58 05/31/17 07:58 05/31/17 07:58 05/31/17 07:58 Laboratory Results 05/28/17 03:30 05/28/17 03:30 05/30/17 05/31/17 06/01/17 05:59 05:59 05:59 Intake Total 600 1050 Balance 600 1050 General: awake, alert though somewhat distressed this morning from events of last night Lungs: few rhonchi, expiratory wheezes CV: RRR without murmur Abdomen: +bowel sounds, soft, tender mid lower abdomen Extremities: no edema ICD10 Worksheet Patient Problems: Problems Problem Status Onset Diverticulitis Acute Abdominal pain Acute Bronchitis Acute Chronic abdominal pain Acute Diarrhea Acute Elevated serum creatinine Acute History of nausea and vomiting Acute Hypokalemia Acute Nausea & vomiting Acute Pain Acute Pneumonia Acute Vomiting Acute
[2017-05-31 13:00] LABS: PLATELET COUNT 219 10^3/uL (150-400)
[2017-05-31] MEDS ORDERED: IOPAMIDOL (ISOVUE-300) 100 ML BTL ONE (13:28)
[2017-05-31] MEDS: QUEtiapine FUMARATE 100 MG TAB PO SCH (20:04)
[2017-05-31] MEDS: traZODone 50 MG TAB PO SCH (20:04)
[2017-05-31] MEDS: clonazePAM 0.5 MG TAB PO SCH (20:04)
[2017-06-01] MEDS: LEVALBUTEROL 1.25 MG/3 ML DEYVIAL IH SCH ×3 (05:56→16:06)
[2017-06-01] MEDS: PROMETHAZINE HCL 25 MG/ML INJ IVP PRN (07:14)
[2017-06-01] MEDS: HYDROmorphONE/DILAUDID 1 MG/ML INJ IVP PRN ×2 (07:14→14:44)
[2017-06-01] MEDS: DULoxetine 30 MG CAP PO SCH (10:19)
[2017-06-01] MEDS: AMOXICILLIN/CLAVULANATE POT 875/125 MG TAB PO SCH ×3 (10:19→20:36)
[2017-06-01] MEDS: guaiFENesin 600 MG TAB.ER PO SCH ×2 (10:19→20:35)
[2017-06-01] MEDS: PANTOPRAZOLE SODIUM 40 MG TAB PO SCH ×2 (10:19→20:34)
[2017-06-01] MEDS: predniSONE 20 MG TAB PO SCH (10:20)
[2017-06-01] MEDS: POTASSIUM CL 20 MEQ TAB PO SCH ×2 (10:20→20:35)
[2017-06-01] MEDS: FUROSEMIDE 40 MG TAB PO SCH (10:20)
[2017-06-01] MEDS: FAMOTIDINE 20 MG TAB PO SCH ×2 (10:20→20:34)
[2017-06-01] MEDS: ENOXAPARIN 40 MG/0.4 ML SYR SC SCH (10:20)
[2017-06-01] MEDS: ATORVASTATIN CALCIUM 10 MG TAB PO SCH (10:20)
[2017-06-01] MEDS: morphINE SR 30 MG TAB PO SCH ×2 (10:20→20:35)
[2017-06-01] MEDS: OXYMETAZOLINE 30 ML NASAL SPRAY EACHNARE SCH ×2 (10:30→20:37)
[2017-06-01] MEDS ORDERED: LEVALBUTEROL 1.25 MG/3 ML DEYVIAL IH PRN (16:49)
--- NOTE | 2017-06-01 16:57 | SOAPPROG ---
SOAP Progress Note Assessment/Plan: Assessment: Plan: 05/24/17 11:15 abdominal pain with sigmoid diverticulitis. Continue IV Invanz and flagyl. She has a complicated history of prior high dose chronic pain therapy. Pain control will likely be more challenging. Will add po morphine along with IV short acting. Anticipate the potential need to escalate the dose. N/V--terminal clerk historic challenge. Increase phenergan dosing. Historically ondansetron by itself has not worked adequately. insomnia--stable QUIN--CPAP at home depression/anxiety--continue current meds 05/25/17 09:05 acute URI sx--eval for influenza today. Start symptomatic care, add tamiflu if + diverticulitis--a bit better today historic fe def--now nl 05/27/17 08:58 pain--add long acting morphine to better bridge pain gaps (h/o terminal clerk chronic pain therapy) diverticulitis--slow improvement in pain sx, check labs in am URI--moderate lung coarseness with this, add prednisone dep/anxiety--aggravated by illness QUIN--HS oxygen while here d/c home to [facility] when improved adequately 05/28/17 09:04 diverticulitis--clinically improving bronchitis check CXR--r/o RML infiltrate pain--improved with addition of long acting morphine anxiety--stable hopefully home soon 06/01/17 16:52 diverticulitis--improved by imaging. Will continue Augmentin for 3 more days abdominal pain--difficult to pin point. Will add po dilaudid in an attempt to stop IV pain meds. Anticipate d/c to home with current long acting morphine and either dilaudid or MSIR for breakthrough for a week or so. Will taper off long acting morphine as an outpatient. Complicated chronic pain history, but had been on tramadol only for the past year pleural effusion--likely secondary to fluids from treatment, continue diuretics , fluids stopped bronchitis with prior concern for poss pneumonia--improved nicely. Will d/c prednisone and reduce nebs to prn dispo--care coverage will be in place at [facility] tomorrow evening. Morning meds to be given in hospital, then anticipate d/c to home at [facility] anx/dep--stable, but challenged during hospital stable Subjective: Feeling URI sx have improved nicely. Cough is minimal. No more wheeze, shortness of breath or chest pressure. Appetite is good. N seems to correlate with pain. Pain has shifted upward a bit. Diarrhea has been moderately persistent over the last day. No blood or mucous. Objective: Vital Signs Temp Pulse Resp BP Pulse Ox 37.2 C 94 18 123/82 H 94 06/01/17 16:00 06/01/17 16:00 06/01/17 16:00 06/01/17 16:00 06/01/17 16:00 Laboratory Results 05/31/17 12:48 05/31/17 12:48 05/31/17 06/01/17 06/02/17 05:59 05:59 05:59 Intake Total 1050 550 Balance 1050 550 Gen: improved Lungs: mild coarseness, dry cough Heart: RRR Abd + bs soft mild-mod central upper abdomen, no GRM le's stable mild edema Ct 05/31 no current evidence of diverticulitis. new pleural effusion (small) moderate constipation ICD10 Worksheet Patient Problems: Problems Problem Status Onset Diverticulitis Acute Abdominal pain Acute Bronchitis Acute Chronic abdominal pain Acute Diarrhea Acute Elevated serum creatinine Acute History of nausea and vomiting Acute Hypokalemia Acute Nausea & vomiting Acute Pain Acute Pneumonia Acute Vomiting Acute
[2017-06-01] MEDS: clonazePAM 0.5 MG TAB PO SCH (20:34)
[2017-06-01] MEDS: QUEtiapine FUMARATE 100 MG TAB PO SCH (20:35)
[2017-06-01] MEDS: traZODone 50 MG TAB PO SCH (20:35)
[2017-06-01] MEDS: HYDROmorphONE/DILAUDID 4 MG TAB PO PRN (20:36)
[2017-06-01 22:08] VITALS: RESP 16
[2017-06-02] MEDS: HYDROmorphONE/DILAUDID 4 MG TAB PO PRN (05:32)
[2017-06-02 08:04] VITALS: BP 118/70; PULSE 62; TEMP 98.4; O2SAT 89
[2017-06-02] MEDS: PROMETHAZINE HCL 25 MG TAB PO PRN (08:18)
[2017-06-02] MEDS: morphINE SR 30 MG TAB PO SCH (08:19)
[2017-06-02] MEDS: AMOXICILLIN/CLAVULANATE POT 875/125 MG TAB PO SCH (09:05)
[2017-06-02] MEDS: guaiFENesin 600 MG TAB.ER PO SCH (09:05)
[2017-06-02] MEDS: FUROSEMIDE 40 MG TAB PO SCH (09:05)
--- NOTE | 2017-06-02 09:05 | SOAPPROG ---
SOAP Progress Note Assessment/Plan: Assessment: 66 yo female w/ diverticulitis, URI, ongoing pain and nausea -diverticulitis - cont on IV abx, slow progress, on invanz and flagyl, phenergan /zofran for nausea, is having some loose stools. -URI - influenza neg, still w/ coughing w/ deep inspiration, somewhat wheezy on exam - has nebs but prn, will change to q4 while awake as she reports she is not getting these. -QUIN - cpap -depression/anxiety - cont w/ current meds Plan: 05/26/17 10:24 05/30/17 12:38 LATE ENTRY NOTE FOR 05/29/17 66 yo female w/ diverticulitis, URI -diverticulitis - much better, nl bm's, eating full diet -URI - still w/ sob/wheezing - cont on pred 20, nebs, hopefully improves over next 24 hrs -QUIN - cpap -depression/anxiety - brighter affect now as feeling better, cont current meds -dispo - likely d/c Sat or Sun to [facility] - has good care there in place. 06/02/17 09:01 66 yo female w/ diverticulitis, URI Doing much better overall, ready to go home -diverticulitis - will need 5 more doses of augmentin, will write rx, she will complete course at [facility]. Person avail there today to go to pharmacy and fill rx for her. -URI - off pred now, doing much better, wheezing cleared, still w cough -QUIN- cont cpap at home -depression/anxiety - much better now, was challenged w/ acute illness but feeling much better again -dispo - d/c home today to [facility]. Subjective: Feeling better, wants to go home Objective: Vital Signs Temp Pulse Resp BP Pulse Ox 36.9 C 62 16 118/70 89 L 06/02/17 08:00 06/02/17 08:00 06/02/17 08:00 06/02/17 08:00 06/02/17 08:00 Laboratory Results 05/31/17 12:48 05/31/17 12:48 06/01/17 06/02/17 06/03/17 05:59 05:59 05:59 Intake Total 550 Balance 550 GEN: much brighter affect, alert, upright in bed Heent: eomi Neck soft/supple Chest: few scattered rhonchi, much better air mov't throughout CV: rrr nl s1 s2 Abd: still mildly ttp diffusely but nl bs Ext: no edema ICD10 Worksheet Patient Problems: Problems Problem Status Onset Bronchitis Acute Pneumonia Acute History of nausea and vomiting Acute Diarrhea Acute Abdominal pain Acute Vomiting Acute Hypokalemia Acute Nausea & vomiting Acute Chronic abdominal pain Acute Pain Acute Elevated serum creatinine Acute Diverticulitis Acute
[2017-06-02] MEDS: FAMOTIDINE 20 MG TAB PO SCH (09:06)
[2017-06-02] MEDS: DULoxetine 30 MG CAP PO SCH (09:06)
[2017-06-02] MEDS: ATORVASTATIN CALCIUM 10 MG TAB PO SCH (09:06)
[2017-06-02] MEDS: PANTOPRAZOLE SODIUM 40 MG TAB PO SCH (09:06)
[2017-06-02] MEDS: ENOXAPARIN 40 MG/0.4 ML SYR SC SCH (09:06)
[2017-06-02] MEDS: POTASSIUM CL 20 MEQ TAB PO SCH (09:06)
[2017-06-02] MEDS: OXYMETAZOLINE 30 ML NASAL SPRAY EACHNARE SCH (09:07)
--- NOTE | 2017-06-02 09:56 | GDS ---
[f rep st] DISCHARGE SUMMARY HOSPITAL COURSE: The patient is a 66-year-old female who presented to the ER on 05/23/2017, with complaint of abdominal pain, which had been progressive for 3 days prior to admission to the point it became severe enough, she was sent to the ER from her usual place of residence, the [facility] by ambulance and has a known history of diverticulitis. She in the ER had a CT scan, which was consistent with diverticulitis and she was given pain management and started on IV Invanz, and decision made to admit. During the course her hospitalization, she also developed an upper respiratory infection with a lot of wheezing and chest tightness, which needed to be treated with prednisone and nebulized breathing treatments. Slowly with time, her pain from her diverticulitis improved greatly. Her upper respiratory infection improved and she was able to increase her diet and return to normal bowel movements, and progressed to the point she is able to be discharged on . She will need to complete the antibiotics course. Her IV Invanz was switched to oral Augmentin and she has 5 doses left. A prescription will be given for this. Also, she has a history of chronic pain, but had been tapered off all her pain medications about a year ago. Unfortunately due to her severe pain from diverticulitis, she had to be restarted on pain management. The plan will be to taper her back off of this again with her PCP, Phil Huddleston. She will be discharged with OxyContin 30 mg p.o. twice daily scheduled and Oxy IR 15 mg p.o. q.6 hours p.r.n. #30. She will follow up in clinic in approximately 1 week to review this and work on a taper down further of this with a plan to get her back off of medications again. She had been covered by tramadol successfully in the interim. MEDICATIONS ON DISCHARGE: Include Tylenol p.r.n., sucralfate 1 g p.o. q.i.d., trazodone 150 mg p.o. q.h.s., quetiapine 100 mg p.o. q.h.s., Pepcid 20 mg p.o. b.i.d., Cymbalta 90 mg total p.o. daily, Klonopin 0.5 p.o. q.h.s., potassium chloride 20 mEq p.o. b.i.d., Lasix 40 mg p.o. daily, triamterene/ hydrochlorothiazide 75/50 one p.o. daily, omeprazole 40 mg p.o. b.i.d., Lipitor 10 mg p.o. daily, Zofran 8 mg p.o. q.6 hours p.r.n., Voltaren gel topically q.i.d. p.r.n., Ativan 1 mg p.o. q.6 hours p.r.n., tramadol 50-100 mg p.o. q.6 hours p.r.n., Phenergan 25-50 mg p.o. Q 6 p.r.n., Imitrex 100 mg p.o. daily p.r.n. headache, morphine 30 mg p.o. b.i.d. #60 total given, morphine IR 5 mg p.o. q.6 hours p.r.n. #30 given, and Augmentin 875 mg p.o. b.i.d. x5 more doses. Also during her hospitalization, she did develop pleural effusions, secondary to fluid from treatment. Her fluids were stopped and diuretics resumed. /[id number]/MODL MTDD
--- NOTE | 2017-06-03 09:19 | ASDISCHSUM ---
Discharge Information Plan Status:Home with No Needs Medically Cleared to Leave:06/01/2017 Discharge Date:06/02/2017 12:47 PM CM D/C Disposition: ADT D/C Disposition:Home, Routine, Self-Care Projected Discharge Date:06/02/2017 12:00 AM Transportation at D/C: Discharge Delay Reason: Follow-Up Date:06/02/2017 12:00 AM Discharge Slot: Final Diagnosis: Placement Information Patient Contact Information Contact Name:IVONNE Relationship:Jay Address: City:[place] Alternate Phone: [facility] Code:[place] Email: Financial Information Financial Class: Primary Plan Desc:MEDICARE INPATIENT Primary Plan Number:[id number] Secondary Plan Desc:MEDICA[place] Secondary Plan Number:[id number] Assessment Information [facility] CM Progress Note CM Note CM Note Notes: Chart reviewed. Patient admitted with abdominal pain. Normally lives at [facility] independently with no services. No current needs identified, CM available should needs arise. Date Signed: 05/24/2017 12:33 PM Electronically Signed By:Jo Stewart RN [facility] CM Progress Note CM Note CM Note Notes: Chart reviewed. Spoke to patient's RN who reports patient will stay today as pain is uncontrolled. Plan to return to [facility] when medicallly stable. CM to follow. Date Signed: 05/25/2017 12:20 PM Electronically Signed By:Jo Stewart RN [facility] CM Progress Note CM Note CM Note Notes: Plan remains the same, pt is independent with ADLs, will dc home to [place] when medically stable. CM available for any changes. DC Plan: [facility] [place] Date Signed: 05/27/2017 03:21 PM Electronically Signed By:Heather Hartmann RN [facility] CM Progress Note CM Note CM Note Notes: DC plan unchanged. No needs identified. CM available should needs change. Date Signed: 05/29/2017 11:24 AM Electronically Signed By:Jo Stewart RN Case Management Discharge Plan Note Case Management Discharge Discharge Order Complete? Answers: Yes Patient to Obtain Answers: [facility] Transportation Arranged Answers: Taxi - Voucher Transport will Pick (Date 06/02/2017 01:00 PM & Time) [place] Complete Answers: No Case Management Transport Answers: No Form Complete Faxed Final Orders Answers: Yes Agency/Facility Transfer Answers: Yes Report Printed & Faxed to Receiving Agency Family Notified Answers: No Discharge Comments Notes: CM spoke diana Pyle RN and Dr. Arceo regarding d/c POC. Pt is being discharged today back to [facility]. CM sent d/c paperwork to [facility] (F#: [phone]). Pt reports that she does not have any friends or family that can take her home. Pt reports that she also does not have any money for a cab. CM provided a cab voucher. CM available for changes. Plan: Independent Date Signed: 06/02/2017 10:46 AM Electronically Signed By:ANSON Crump Intervention Information Intervention Type:*Incorrect Registration Date of Service:05/23/2017 03:48 PM Patient Type:Inpatient Staff Member:HUGO Bullock, Tasha Hours:0.25 Discipline: Severity:1 (0-1 Hours) Comment:Registered observation, written admit order inpatient status. Intervention Type:*IM-Signed Date of Service:06/02/2017 10:33 AM Patient Type:Inpatient Staff Member:Susu Storey Hours: Discipline: Severity: Comment:
== END 2017-06-02 12:47 | disposition home or self-care (01) | DRG 392 ==
LOC: EDUNIT# → F3E 15:34 → OBSVTOIN 15:48
PROVIDERS: ADMIT Internal Medicine; ATTEND Internal Medicine
DX: K57.32 Diverticulitis of large intestine without perforation or abscess without bleeding (principal); J06.9 Acute upper respiratory infection, unspecified; G47.33 Obstructive sleep apnea (adult) (pediatric); F41.8 Other specified anxiety disorders
CPT/HCPCS: 96374; 97165-GO; G8987-GO-CI; G8988-GO-CH; G8989-GO-CH; J0696; J1170; J1335; J1642; J1650; J1885; J2405; J2550; J7512; J7613; Q9967

== ENCOUNTER 2018-05-09 13:54 | Emergency (ER) | payer OTHER, MEDICAID ==
[2018-05-09] MEDS ORDERED: NS 1,000 ML IV ONE (14:03)
--- NOTE | 2018-05-09 14:03 | EDPHY ---
H & P Time Seen by Provider: 05/09/18 13:58 HPI/ROS: HPI: This is a 67-year-old female who presents with Chief Complaint: Abdominal pain Location: Periumbilical Quality: Pain Duration: 2-3 days Signs and Symptoms: no fever,+ nausea, + vomiting, no hematemesis, no blood in stool, no abdominal bloating, no diarrhea, no back pain, no urinary symptoms, no vaginal bleeding/discharge, no indigestion, no chest pain, no shortness of breath Timing: Acute Severity: Moderate to severe Context: Patient has a history of chronic opiate use, narcotic withdrawal, MediPort, diverticulitis, Cortez esophagus, fibromyalgia presents with feeling fatigued and having nausea with 2 episodes of vomiting approximately 3 days ago. She then had a migraine headache and laid in the bed. The next issue about periumbilical pain that continued accompanied by 2 more episodes of vomiting. She denies any diarrhea, urinary symptoms, fever. Patient reports that she has a dull aching headache at this time. She reports that her headache now feels different than her other migrainous headaches but is not the worse headache of her life and has no thunderclap symptoms. Modifying Factors: None Comment: ROS: A comprehensive 10 system review of systems is otherwise negative aside from elements mentioned in the history of present illness. MEDICAL/SURGICAL/SOCIAL HISTORY: Medical history: Chronic bronchitis, Cortez esophagus, fibromyalgia, anxiety, depression, narc withdrawal Surgical history: left chest mediport Social history: Never smoked. Family history noncontributory. CONSTITUTIONAL: Nontoxic-appearing elderly obese female, awake and alert, no obvious distress HEENT: Atraumatic and normocephalic, PERRL, EOMI. Nares patent; no rhinorrhea; no nasal mucosal edema. Tympanic membranes clear. Oropharynx clear, no exudate and moist pink mucosa. Airway patent. No lymphadenopathy. No meningismus. Cardiovascular: Normal S1/S2, regular rate, regular rhythm, without murmur rub or gallop. PULMONARY/CHEST: Left chest port noted. Symmetrical and nontender. Clear to auscultation bilaterally. Good air movement. No accessory muscle usage. ABDOMEN: Soft, nondistended, obesely rounded, periumbilical moderate generalized tenderness; no rebound, no guarding, no peritoneal signs, no masses or organomegaly. No CVAT. Bowel sounds heard x4 quadrants EXTREMITIES: 2/2 pulses, strength 5/5, no deformities, no clubbing, no cyanosis or edema. NEUROLOGICAL: no focal neuro deficits. GCS 15. SKIN: Warm and dry, no erythema. no rash. Good capillary refill. Source: Patient, Old records Exam Limitations: No limitations - Personal History Tetanus Vaccine Date: < 10 years - Medical/Surgical History Hx Asthma: No Hx Chronic Respiratory Disease: No Hx Diabetes: No Hx Cardiac Disease: No Hx Renal Disease: No Hx Cirrhosis: No Hx Alcoholism: No Hx HIV/AIDS: No Hx Splenectomy or Spleen Trauma: No Other PMH: Chronic bronchitis, Barrets esophagus, fibromyalgia, anxiety, depression left chest mediport, narc withdrawal - Social History Smoking Status: Never smoked Constitutional: Initial Vital Signs Temperature (C) 37.9 C 05/09/18 13:59 Heart Rate 90 05/09/18 13:59 Respiratory Rate 20 05/09/18 13:59 Blood Pressure 154/86 H 05/09/18 13:59 O2 Sat (%) 92 05/09/18 13:59 O2 Delivery Mode Room Air O2 (L/minute) 2 Allergies/Adverse Reactions: cyclobenzaprine HCl [From Flexeril] Allergy (Mild, Verified 05/09/18 13:58) Rash sulfamethoxazole [From Septra] Allergy (Mild, Verified 05/09/18 13:58) Vomiting trimethoprim [From Septra] Allergy (Mild, Verified 05/09/18 13:58) Vomiting Home Medications: Medication Instructions Recorded Diclofenac Sodium 1% [Voltaren Gel 1 gm TP QID PRN 06/14/15 (*)] Sucralfate 1 gm PO QID 06/14/15 traMADol [Ultram 50 mg (*)] 50 - 100 mg PO Q6 PRN 04/09/17 Acetaminophen [Tylenol ES 500 mg 500 - 1,000 mg PO Q6 PRN 05/23/17 (*)] Atorvastatin Calcium [Lipitor 10 10 mg PO DAILY 05/23/17 mg (*)] DULoxetine [Cymbalta 30 MG (*)] 30 mg PO DAILY 05/23/17 DULoxetine [Cymbalta 60 MG (*)] 60 mg PO DAILY 05/23/17 Famotidine [Pepcid 20 MG (*)] 20 mg PO BID 05/23/17 Furosemide [Lasix 40 MG (*)] 40 mg PO DAILY 05/23/17 LORazepam [Ativan (*)] 1 mg PO Q6 PRN 05/23/17 Omeprazole 40 mg PO BID 05/23/17 Ondansetron HCl [Zofran] 8 mg PO Q6 PRN 05/23/17 Potassium Chloride [Klor-Con M20] 20 meq PO BID 05/23/17 Promethazine HCl [Phenergan 25mg 25 - 50 mg PO Q6 PRN 05/23/17 (*)] QUEtiapine FUMARATE [Seroquel 100 100 mg PO HS 05/23/17 mg (*)] Sumatriptan Succinate [Imitrex] 100 mg PO DAILY PRN MDD 200MG 05/23/17 Triamterene/Hydrochlorothiazid 1 each PO DAILY 05/23/17 [Triamterene-Hctz 75-50 mg Tab] clonazePAM [Klonopin (*)] 0.5 mg PO HS 05/23/17 traZODone [traZODONE 50MG (*)] 150 mg PO HS 05/23/17 Amoxicillin/Clavulanate Pot 875 mg PO BID #5 tab 06/02/17 [Augmentin 875 MG TAB (*)] morphINE IR [morphINE IR 15 mg (*)] 5 mg PO Q6HRS PRN #30 tab 06/02/17 morphINE SR [MS Contin/Oramorph SR 30 mg PO BID #60 tab 06/02/17 30 mg (*)] Ciprofloxacin [Cipro] 500 mg PO BID #14 tab 05/09/18 Promethazine HCl 25 mg PO Q6 PRN #12 tablet 05/09/18 metroNIDAZOLE [Flagyl 500 mg (*)] 500 mg PO TID #21 tab 05/09/18 Medical Decision Making - Diagnostics Imaging Results: Imaging Impressions Abdomen CT 05/09/18 14:03 Impression: 1. Mild sigmoid diverticulitis. No abscess or perforation. 2. Appendix cannot be identified. No regional inflammation in the right lower quadrant. 3. 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 Findings discussed with emergency department physician assistant pastry chef, ASIM Bundy on May 09, 2018 at 3:39 p.m. ED Course/Re-evaluation: Vital signs reviewed and stable upon arrival. No systemic signs. IV access and laboratory studies along with CT abdomen and pelvis scan to evaluate for diverticulitis and appendicitis ordered Patient given 1 L normal saline, IV Haldol 2.5 mg, IV Benadryl 25 mg and IV Zofran 4 mg 1508: Notified by nurse that patient is asking for IV Dilaudid prior to CT scan. Advised that I will not given narcotics to this patient unless pathology seen on CT scan. Offered IV lidocaine verses ketamine 1720: Labs reviewed. No signs of leukocytosis/anemia/platelet dysfunction/ elevated LFTs/electrolyte imbalance/pancreatitis. Creatinine 1.1 1725: IV ketamine 20 mg given 1555: Called by radiologist, Dr. Holm, who advised that patient cannot find appendix, positive constipation, mild diverticulitis noticed in the sigmoid colon P.o. Cipro and Flagyl given. 1805: Reassessed patient who reports moderate relief of symptoms. Advised to follow up with primary care provider for opiate prescription. This patient was seen under the supervision of my secondary supervising physician. I evaluated care for this patient independently. Discussed this patient with Dr. Rice who did not see the patient. Differential Diagnosis: Abdominal pain including but not limited to appendicitis, cholecystitis, gastritis and urinary tract infection. - Data Points Laboratory Results: Laboratory Results 05/09/18 14:30 05/09/18 14:30 05/09/18 05/09/18 14:30 14:30 WBC 8.36 10^3/uL 10^3/uL (3.80-9.50) RBC 4.60 10^6/uL 10^6/uL (4.18-5.33) Hgb 14.4 g/dL g/dL (12.6-16.3) Hct 41.3 % % (38.0-47.0) MCV 89.8 fL fL (81.5-99.8) MCH 31.3 pg pg (27.9-34.1) MCHC 34.9 g/dL g/dL (32.4-36.7) RDW 12.2 % % (11.5-15.2) Plt Count 242 10^3/uL 10^3/uL (150-400) MPV 10.9 fL fL (8.7-11.7) Neut % (Auto) 70.1 % % (39.3-74.2) Lymph % (Auto) 22.1 % % (15.0-45.0) [place] % (Auto) 4.9 % % (4.5-13.0) Eos % (Auto) 1.0 % % (0.6-7.6) Baso % (Auto) 0.7 % % (0.3-1.7) Nucleat RBC Rel Count 0.2 % % (0.0-0.2) Absolute Neuts (auto) 5.86 10^3/uL 10^3/uL (1.70-6.50) Absolute Lymphs (auto) 1.85 10^3/uL 10^3/uL (1.00-3.00) Absolute Monos (auto) 0.41 10^3/uL 10^3/uL (0.30-0.80) Absolute Eos (auto) 0.08 10^3/uL 10^3/uL (0.03-0.40) Absolute Basos (auto) 0.06 10^3/uL 10^3/uL (0.02-0.10) Absolute Nucleated RBC 0.02 10^3/uL H 10^3/uL (0-0.01) Immature Gran % 1.2 % H % (0.0-1.1) Immature Gran # 0.10 10^3/uL 10^3/uL (0.00-0.10) Sodium 139 mEq/L mEq/L (135-145) Potassium 3.6 mEq/L mEq/L (3.5-5.2) Chloride 101 mEq/L mEq/L (97-110) Carbon Dioxide 26 mEq/l mEq/l (22-31) Anion Gap 12 mEq/L mEq/L (6-14) BUN 17 mg/dL mg/dL (7-23) Creatinine 1.1 mg/dL H mg/dL (0.6-1.0) Estimated GFR 50 Glucose 103 mg/dL H mg/dL (70-100) Calcium 9.7 mg/dL mg/dL (8.5-10.4) Total Bilirubin 0.5 mg/dL mg/dL (0.1-1.4) Conjugated Bilirubin 0.5 mg/dL mg/dL (0.0-0.5) Unconjugated Bilirubin 0.0 mg/dL mg/dL (0.0-1.1) AST 28 IU/L IU/L (14-46) ALT 19 IU/L IU/L (9-52) Alkaline Phosphatase 84 IU/L IU/L (38-126) Total Protein 7.5 g/dL g/dL (6.3-8.2) Albumin 4.5 g/dL g/dL (3.5-5.0) Lipase 61 IU/L IU/L (23-300) Medications Given: Discontinued Medications Ciprofloxacin (Cipro) 500 mg PO EDNOW ONE PRN Reason: Protocol Stop: 05/09/18 15:58 Last Admin: 05/09/18 16:36 Dose: 500 mg Diphenhydramine HCl (Benadryl Injection) 25 mg IVP EDNOW ONE Stop: 05/09/18 14:05 Last Admin: 05/09/18 14:30 Dose: 25 mg Haloperidol Lactate (Haldol Injection) 2.5 mg IVP EDNOW ONE Stop: 05/09/18 14:05 Last Admin: 05/09/18 14:31 Dose: 2.5 mg Heparin Sodium (Porcine) (Heparin Lock Flush) 500 unit IVP EDNOW ONE Stop: 05/09/18 16:30 Last Admin: 05/09/18 16:36 Dose: 500 unit Sodium Chloride (Ns) 1,000 mls @ 0 mls/hr IV EDNOW ONE; Wide Open PRN Reason: Protocol Stop: 05/09/18 14:04 Last Admin: 05/09/18 14:30 Dose: 1,000 mls Ketamine HCl (Ketamine) 20 mg IVP EDNOW ONE Stop: 05/09/18 15:24 Last Admin: 05/09/18 15:27 Dose: 20 mg Metronidazole (Flagyl) 500 mg PO EDNOW ONE PRN Reason: Protocol Stop: 05/09/18 15:58 Last Admin: 05/09/18 16:36 Dose: 500 mg Ondansetron HCl (Zofran) 4 mg IVP EDNOW ONE Stop: 05/09/18 14:06 Last Admin: 05/09/18 14:31 Dose: 4 mg Departure - Departure Disposition: Home, Routine, Self-Care Clinical Impression: Constipation due to pain medication, Diverticulitis of sigmoid colon Condition: Good Instructions: Diverticulitis (ED), Constipation (ED), Diverticulitis Diet (ED) Additional Instructions: Consume a minimum of 8-10 glasses of water or electrolyte fluid replacement drinks that include Gatorade, Powerade, Pedialyte. Eat a bland diet for the next 48 hours and then slowly advance as tolerated. Take Zofran 1 tab every 4 hours as needed for nausea, vomiting. Take Cipro and Flagyl times 10 days as prescribed. Take MiraLax daily as needed for constipation. Follow-up with primary care provider in the next 2-3 days. Return to the Emergency Room if symptoms do not resolve in the next 72 hours, you spike a fever > 102 F, or experience intractable abdominal pain/nausea/ vomiting. Referrals: Patient,NotPresent [Unknown] - As per Instructions Jose Ramon Allen MD [Medical Doctor] - As per Instructions Prescriptions: Ciprofloxacin [Cipro] 500 mg PO BID #14 tab metroNIDAZOLE [Flagyl 500 mg (*)] 500 mg PO TID #21 tab Promethazine HCl 25 mg PO Q6 PRN #12 tablet PRN Reason: Nausea/Vomiting, Use 1st
[2018-05-09] MEDS ORDERED: HALOPERIDOL LACT 5 MG/ML INJ IVP ONE (14:04)
[2018-05-09] MEDS ORDERED: ONDANSETRON 4 MG/2 ML VIAL IVP ONE (14:05)
[2018-05-09 14:42] LABS: PLATELET COUNT 242 10^3/uL (150-400)
[2018-05-09] MEDS ORDERED: IOPAMIDOL (ISOVUE 370) 100 ML BTL IV ONE (15:01)
[2018-05-09] MEDS ORDERED: KETAMINE 200 MG/20 ML VIAL IVP ONE (15:23)
[2018-05-09] MEDS ORDERED: CIPROFLOXACIN 500 MG TAB PO ONE (15:57)
[2018-05-09] MEDS ORDERED: metroNIDAZOLE 500 MG TAB PO ONE (15:57)
[2018-05-09 16:36] VITALS: BP 118/73
== END 2018-05-09 16:41 | disposition home or self-care (01) ==
LOC: EDUNIT#
DX: K59.03 Drug induced constipation (principal); T40.605A Adverse effect of unspecified narcotics, initial encounter; K57.30 Diverticulosis of large intestine without perforation or abscess without bleeding
CPT/HCPCS: 74177; 96361; 96374; 96375; 99285; J1200; J1630; J1642; J2405; Q9967